=== PATIENT | male | born 1965 | race Caucasian/White ===

== ENCOUNTER 2018-12-27 11:20 | Observation (INO) ==
--- NOTE | 2018-12-27 14:17 | Urology - Consult Note ---
Addendum entered and electronically signed by Long Gilliam MD 12/27/18 18:23: This document is the history and physical for the patient's admission for observation Original Note: <Kanchan Babin - Last Filed: 12/27/18 14:12> Date of Encounter: 12/27/18 Time of Encounter: 14:00 - Assessment and Plan (1) Left ureteral stone Current Visit: Yes Status: Acute Assessment and plan: Patient is a 53-year-old male who presents with a left proximal ureteral stone, approximately 5 x [address] images with Dr. Gilliam. Vital signs are stable and afebrile. Urinalysis is negative. I discussed surgical risks and benefits with patient, including bleeding, infection, scarring, stricture, damage to the urinary tract, anesthesia risks, blood clots, failure to definitiv brooke extract stone in one procedure, possible need for ureteral stent placement or nephrostomy tube placement. Patient verbalizes understanding, and consent has been signed. Patient has not eaten or drank liquids since 6 PM yesterday, and he will remain nothing by mouth. Patient is prepared undergo a left ESWL and possible ureteral stent placement with Dr. Gilliam later this afternoon. Urology CN:HPI Consult date: 12/27/18 Reason for consult Urology: Other (left ureteral stone) History of present illness: Patient is a 53-year-old male who presents with a left proximal ureteral stone. Patient states he experienced left flank pain early this morning, and it was accompanied by nausea and vomiting. Patient states he was told he had a renal stone 1-2 years ago, but he never passed it or pursued follow up with urology. Patient does not follow routinely with urology and does not take any home medica tions. Patient has no known prior history of renal stones that have required surgical intervention. Patient has a positive family history of renal stones through his mother. Currently, patient is resting comfortably in bed, and he denies any gross hematuria, fever, chills, dysuria, urgency, frequency, hesitancy, incontinence. Past Med Surg Social Fam HX - Social History Smoking Status: Current every day smoker Smokeless Tobacco Status: No Alcohol use: occasionally Drug use: marijuana - Family History Mother Living Status: Still Living Hx Family Genitourinary Disorders: Yes (one kidney) Father Living Status: Still Living Hx Family Endocrine Disorder: Yes (DM) Medications and Allergies Allergy/AdvReac Type Severity Reaction Status Date / Time No Known Allergies Allergy Verified 12/27/18 14:11 Review of Systems - Constitutional no chills, no fatigue, no fever(s) - EENT Nose, mouth and throat: no dizziness, no headache(s) - Cardiovascular no chest pain, no diaphoresis, no dyspnea - Respiratory no cough, no dyspnea - Gastrointestinal abdominal pain, nausea, vomiting - Genitourinary no change in urinary stream, no difficulty urinating, no dysuria, no hematuria, no urinary frequency, no urinary hesitancy, no urinary incontinence, no urinary urgency - Musculoskeletal no back pain, no muscle weakness - Integumentary no erythema, no rash - Neurological no confusion, no syncope - Psychiatric no anxiety, no confusion - Hematologic/Lymphatic no easy bleeding, no easy bruising - Allergic/Immunologic no throat swelling, no wheezing Exam Initial Vital Signs Temp Pulse Resp BP Pulse Ox 97.9 F 60 15 146/84 97 12/27/18 13:52 12/27/18 13:52 12/27/18 13:52 12/27/18 13:52 12/27/18 13:52 - General physical appearance Present: well developed, no distress, no pain - Eyes Present: PERRL, normal ocular movement - ENT Present: normal nares, no hearing loss, no congestion - Neck Present: no masses, trachea midline - Respiratory Present: normal respiratory effort - Abdomen Abdomen: Present: soft, non tender - Integumentary Present: no rash, no abnormal pigmentation - Neurologic Present: normal coordination Urology Results - Labs All other labs normal. - Imaging CT scan - abdomen: report reviewed, image reviewed CT scan - pelvis: report reviewed, image reviewed Consult Discharge Plan - Plan Referrals: NONE,PCP [Non-Partnered Physician] - <Long Gilliam - Last Filed: 12/27/18 15:23> Date of Encounter: 12/27/18 Urology CN:HPI History of present illness: Patient was seen and examined independent. I agree with the plan as written by Kanchan Babin. We will plan on taking the patient to the operating today for left ESWL and possible left ureteral stent placement Exam Initial Vital Signs Temp Pulse Resp BP Pulse Ox 97.9 F 60 15 146/84 97 12/27/18 13:52 02/01/19 13:52 12/27/18 13:52 12/27/18 13:52 12/27/18 13:52 Urology Results - Labs All other labs normal.
--- NOTE | 2018-12-27 16:48 | Anesthesia Evaluation PreOp ---
Date of Encounter: 12/27/18 Time of Encounter: 16:42 - Past History Planned Operation: Left ESWL Cardiac History: Denies any Significant Hx Pulmonary History: Smoker (20 years) [employer] History: Denies Any Significant HX Other Medical History: Renal (kidney stones) Anesthesia History: No Prior Anesthetic Complications, Past Anesthesia Alcohol Use: occasionally (3-4 beers daily) Drug use: marijuana Medications and Allergies Allergy/AdvReac Type Severity Reaction Status Date / Time No Known Allergies Allergy Verified 12/27/18 14:11 - Meds/Allergy Pre-op Review Medications Reviewed: Yes Allergies Reviewed: Yes Beta Blockers on Current Med List: No Anesthesia Exam Vital Signs/O2 Sat, Most Current Temp Pulse Resp BP Pulse Ox 97.9 F 60 15 146/84 97 12/27/18 13:52 12/27/18 13:52 12/27/18 13:52 12/27/18 13:52 12/27/18 13:52 Height: 5'9''/1.75m Weight: 140 lbs/63.5 kg NPO (# of Hours): 8 Pain Scale: 0 Pain Scale Used: Numeric (1 - 10) - HEENT Pupil (Motor): EOMI Mallampati: II Teeth: Normal, Missing Oral Opening: Greater than 3 - [employer]ES [employer] LOC: Oriented [employer] Motor: Normal RUE, Normal LUE, Normal RLE, Normal LLE, Normal Face [employer] Sensory: Normal: RUE, LUE, RLE, LLE, Face - Cardiac Rhythm: Regular Murmur: None - Pulmonary Breath Sounds: bilateral Clear Respiratory Effort: Symmetrical Anesthesia Assess/Plan ASA Score: 2 Level of consciousness: Cooperative, Oriented, Tranquil Anesthetic Plan: General Monitoring Plan: Standard Monitors Recovery Plan: PACU
[2018-12-27] MEDS ORDERED: Ondansetron 4 MG/2 ML VIAL IVP ONE (16:53)
[2018-12-27] MEDS ORDERED: *HR* HYDROmorphone (PF) 1 MG/ML SYRINGE IVP PRN (16:53)
[2018-12-27] MEDS ORDERED: *HR* OxyCODONE Immed Rel 5 MG TABLET PO PRN ×2 (16:53→19:04)
[2018-12-27] MEDS ORDERED: *HR* FentaNYL (PF) 100 MCG/2 ML VIAL ONE (16:55)
[2018-12-27] MEDS ORDERED: *HR* Propofol 200 MG/20 ML VIAL IVP ONE (17:07)
[2018-12-27] MEDS ORDERED: CeFAZolin Syr 2,000MG/20 ML 2,000 MG/20 ML SYRINGE IVPB ONE (17:07)
[2018-12-27] MEDS ORDERED: *HR* Midazolam HCl 2 MG/2 ML VIAL ONE (17:07)
[2018-12-27] MEDS ORDERED: Dexamethasone 4 MG/ML VIAL ONE (17:08)
[2018-12-27] MEDS ORDERED: Lidocaine -MPF 2% 2 ML VIAL ONE (17:08)
--- NOTE | 2018-12-27 18:26 | Operative Note ---
Date of procedure: 12/27/18 Pre-op diagnosis: left upj stone Post-op diagnosis: same Procedure: Left extrapleural shockwave lithotripsy and cystoscopy with left 4.8 x 26 cm ureteral stent placement Anesthesia: NOÉ Surgeon: Long Gilliam Was there an physical therapy assistant present: No Estimated blood loss (cc): 0 Specimen: none Condition: stable Disposition: PACU Procedure in Detail: Patient was placed on lithotripsy table. Timeout procedure performed. At this point the left UPJ stone was then positioned in the X, Y, Z planes. The stone then received 2500 shocks to a power of 6. Stone showed excellent fragmentation. There were some remaining fragments so during the fragmentation I elected to perform cystoscopy. I placed the rigid cystoscope into the patient's bladder. I was able to cannulate the left ureteral orifice using an Glidewire. I then placed a 4.8 x 26 and meter stent with good curl seen in the kidney and in the bladder. A string was left for easy removal in 2-3 days. Remaining 500 shocks were delivered to the ureteral stone. Procedure was ended. Patient taken to PACU in stable condition.
[2018-12-27] MEDS ORDERED: *HR* Belladonna Alkaloids/Opium 60 MG RECTAL SUPPOSITORY RC PRN (19:04)
[2018-12-27] MEDS ORDERED: *HR* Promethazine 25 MG/ML VIAL IVP PRN (19:04)
[2018-12-27] MEDS ORDERED: 0.9 % Sodium Chloride 1,000 ML IVC SCH (19:04)
[2018-12-27] MEDS ORDERED: Naloxone 0.4 MG/ML INJ IVP PRN (19:04)
--- NOTE | 2018-12-27 19:09 | Anesthesia Evaluation Post Op ---
Date of Encounter: 12/27/18 Time of Encounter: 19:07 - Vital Signs Vital Signs: Vital Signs/O2 Sat, Most Current Temp Pulse Resp BP Pulse Ox 98.9 F 72 16 123/79 98 12/27/18 18:52 12/27/18 18:52 12/27/18 18:52 12/27/18 18:52 12/27/18 18:52 - Lungs Lungs: Clear Ascult./Percussion - Airway Airway: Non-obstructed - Cardiovascular Regular Rate - Mental Status Mental Status: Alert & Oriented, Answers Appropriately - Pain Pain Scale: 0 Pain Scale used: Numeric (1 - 10) - Nausea Vomiting Nausea Vomiting: Not Present - Hydration Hydration: Tolerates oral liquids - Discharge PostOp Status: Transfer Patient to floor
[2018-12-27] MEDS ORDERED: Promethazine 25 MG in 0.9 % Sodium Chloride 50 ML IVPB PRN (19:31)
[2018-12-28] MEDS: *HR* HYDROcodone/Acet 5/325 mg TABLET PO PRN ×2 (01:16→09:22)
[2018-12-28 06:26] LABS: Basophils % 0.3 %; Eosinophils % 0.1 %; Hematocrit 39.5 % (37.5-50.1); Hemoglobin 13.7 g/dL (12.9-16.9); Immature Granulocytes % 0.4 % (0-4); Lymphocytes # 1.3 K/mcL (0.6-4.6); Lymphocytes % 19.4 %; Mean Corpuscular HGB Conc 34.7 g/dL (31.6-35.5); Mean Corpuscular Hemoglobin 30.9 pg (28.0-33.3); Mean Platelet Volume 10.1 fL (9.4-12.4); Monocytes # 0.7 K/mcL (0.0-1.3); Monocytes % 10.6 %; Neutrophils # 4.7 K/mcL (1.6-8.9); Platelet Count 188 K/mcL (140-400); Red Blood Count 4.44 M/mcL (4.19-5.50); Red Cell Distribution Width 11.9 % (11.5-14.5); Segmented Neutrophils % 69.2 %
[2018-12-28 06:42] LABS: BUN/Creatinine Ratio 13 (6-26); Blood Urea Nitrogen 13 mg/dL (6-20); Calcium 8.6 mg/dL (8.6-10.3); Carbon Dioxide 27 mEq/L (23-29); Chloride 106 mEq/L (98-107); Glucose 109 mg/dL (70-105); Osmolality,Calculated 287 (280-300); Potassium 4.2 mEq/L (3.5-5.1); Sodium 138 mEq/L (136-145); eGFR For Non-African Americans > 60 (> 60)
[2018-12-28 07:15] VITALS: BP 114/67
--- NOTE | 2018-12-28 07:51 | Discharge Summary ---
Date of Encounter: 12/28/18 Time of Encounter: 07:50 - Discharge Diagnosis (1) Left ureteral stone Priority: Primary Status: Acute - Hospital Course Hospital course: Mr. Tan is a 53 year old male - Time Spent with Patient Total time spent providing and/or coordinating discharge services: Procedures and tests throughout hospitalization: Left ESWL on 12/27/2018 Labs on day of discharge: Labs from last 24 hours 12/28/18 12/28/18 05:33 05:33 WBC 6.9 RBC 4.44 Hgb 13.7 Hct 39.5 MCV 89.0 MCH 30.9 MCHC 34.7 RDW 11.9 Plt Count 188 MPV 10.1 Immature Gran % 0.4 Seg Neutrophils % 69.2 Lymphocytes % 19.4 Monocytes % 10.6 Eosinophils % 0.1 Basophils % 0.3 Neutrophils # 4.7 Lymphocytes # 1.3 Monocytes # 0.7 Eosinophils # 0.0 Basophils # 0.0 Sodium 138 Potassium 4.2 Chloride 106 Carbon Dioxide 27 BUN 13 Creatinine 1.04 Est GFR ( Amer) > 60 Est GFR (Non-Af Amer) > 60 BUN/Creatinine Ratio 13 Glucose 109 H Calculated Osmolality 287 Calcium 8.6 - Discharge Medications Prescriptions: HYDROcodone/Acet 5/325 mg [[place] 5-325 mg] 2 tab PO Q6HR PRN 4 Days #10 tablet PRN Reason: pain 1-6 Oxybutynin [Ditropan] 5 mg PO TID PRN 4 Days #15 tablet PRN Reason: bladder spasms Home Medications: HYDROcodone/Acet 5/325 mg [[place] 5-325 mg] 2 tab PO Q6HR PRN 4 Days #10 tablet 12/28/18 [Rx] Oxybutynin [Ditropan] 5 mg PO TID PRN 4 Days #15 tablet 12/28/18 [Rx] Allergies/Adverse Reactions: Allergy/AdvReac Type Severity Reaction Status Date / Time No Known Allergies Allergy Verified 12/27/18 14:11 Date of admission: 12/27/18 13:32 Primary care physician: Nicolette Arreola MD Discharging clinician: Long Gilliam Anticipated date of discharge: 12/28/18 Exam Initial Vital Signs Temp Pulse Resp BP Pulse Ox 97.9 F 60 15 146/84 97 12/27/18 13:52 12/27/18 13:52 12/27/18 13:52 12/27/18 13:52 12/27/18 13:52 - General physical appearance Present: well developed, well nourished - Eyes Present: PERRL - ENT Present: normal nares - Respiratory Present: normal respiratory effort - Cardiovascular Cardiovascular exam IM: RRR - Patient Status Disposition: Home, Self-Care Condition: Good Functional capacity at discharge: independent ambulation Overall status at discharge: patient is progressing back to baseline - Discharge Instructions Follow Up With: NONE,PCP [Non-Partnered Physician] - Long Gilliam MD [Partnered Physician] - (printed) Additional Instructions: [id number] (Rev. 05/08) Page 1 of 2 POST-OPERATIVE HOME GOING INSTRUCTIONS: URETEROSCOPY/STENT/CYSTOSCOPY [facility] [address] [facility] [address] [facility] [address] [address] [address] Jacobo Sam Your post-operative appointment has been scheduled for 1. When you leave Same Day Surgery you may be given: Prescriptions - Please finish all antibiotics. follow- up visit if instructed by your physician. 2. You should drink 6-8 glasses of water per day, as long as you are not on fluid restrictions by another physician. 3. It is very common to have blood and small clots in you urine following surgery. You may also experience urinary tract discomfort, irritation of the bladder and urethra (frequency, urgency, and pain/burning with urination), and occasional inability to control your urine. No sexual intercourse until evaluated by your physician 4. If you have a stent, you can expect pain: In your bladder radiating up to your kidney when, and after, you urinate When lifting something heavy When you turn or bend If you have a stent, you can expect frequency, urgency, and burning with urination and intermittent pink/red colored urine. You can work with a stent in place, but if you do a lot of heavy lifting or moving around you will see more blood in your urine. This is OKAY- just drink more fluids. If a string is taped to your abdomen, penis or thigh, it is connected to your stent. DO NOT pull on, or cut, your stent string, unless otherwise instructed by your physician. 5. Patient to remove stent on Sunday. - Diet and Activity Activity: increase activity as tolerated
== END 2018-12-28 10:20 | disposition home or self-care (01) ==
LOC: 3BNU
PROVIDERS: ADMIT Urology; ATTEND Urology
PROC: UROLITH (2018-12-27 17:30)